=== PATIENT | female | born 1955 | race Caucasian/White ===

== ENCOUNTER 2016-09-19 14:00 | Outpatient (CLI) | payer BC ==
[~2016-09-19] VITALS: Ht 157.5 cm; Wt 59.1 kg
[2016-09-19 14:08] VITALS: BP 106/59; PULSE 78; RESP 18; Ht 157.5 cm; Wt 59.1 kg
[2016-09-19] MEDS ORDERED: ASPI-664 PO (14:23)
--- NOTE | 2016-09-20 17:11 | PN ---
Date/Time of Note Date/Time of Note DATE: 09/20/16 TIME: 17:03 Assessment/Plan Assessment/Plan Assessment/Plan [facility] Progress Note Date of Service: 09/19/16 Today's Impression & Plan: Overall stable post lap viviana for chronic cholecystitis with cholelithiasis and no evidence for malignancy at [facility] on 08/30/16, with MRCP 09/02/16 showing no evidence for CBD obstruction and LFT's normalizing (? reaction to anesthetics). Repeat labs 09/07/16 showed AST 95, ALT 152, alk phos 105 and T.bili 0.7. No indication for acute surgical intervention, but may need further monitoring of liver enzymes and consideration for hepatology consultation. 1. F/u with PCP 2. Consider hepatology consultation and monitoring of LFT's 3. F/u with us prn Thank you very much for allowing us to participate in the care of this very nice patient and wonderful family. If there are any questions, please feel free to contact me at . Total visit time: 20 minutes, of which more than half was spent in [id number] discussion with the patient, possibly including time to discuss issues with family, as well as coordination of care with multiple other physicians and providers. Please note: Spelling or grammatical errors in this note are likely due to EHR/ dictation systems and are not reflective of patient care quality. Also please note that the dictation timestamp of this note does not necessarily reflected time of the visit for this service. Updated Clinical Summary: A very pleasant 61-year-old lady with comorbidities including gastroesophageal reflux disease and hypercholesterolemia with known history of cholelithiasis, being admitted through the emergency department at [facility] on 08/29/2016 with biliary colic and possible early acute cholecystitis with slight elevation in total bilirubin, but with MRCP that showed no obvious choledocholithiasis. S/p lap viviana for acute cholecystitis on 08/31/16. Rise in LFT's post op. MRCP 09/02/16 showed no evidence for CBD obstruction and LFT's normalizing (? reaction to anesthetics). Scheduled ERCP cancelled. COMORBIDITIES: 1. Gastroesophageal reflux disease. 2. Hypercholesterolemia. 3. Known cholelithiasis. 4. S/p lap viviana for chronic cholecystitis with cholelithiasis and no evidence for malignancy at [facility] on 08/30/16, with MRCP 09/02/16 showing no evidence for CBD obstruction and LFT's normalizing (? reaction to anesthetics). Repeat labs showed AST 95, ALT 152, alk phos 105 and T.bili 0.7. Subjective: No major events or complaints since discharge home. Feels well. No major pain complaints and no longer on pain medications. No N/V, SOB or CP. + bowel activity Objective: Vitals: reviewed; please also see EHR Physical Exam: Lungs: breathing comfortably without tachypnea; no audible wheezes, rales or rhonchi on gross exam Abd: Soft, non-tender, and non-distended; no peritoneal signs or guarding; incisions c/d/i w/o obvious e/e/d/h. Skin: Appears pink and feels warm to touch. Neuro: Awake, alert and follows commands appropriately Exam/Review of Systems Vital Signs Vitals Vital Signs Date Time Temp Pulse Resp B/P Pulse Ox O2 Delivery O2 Flow Rate FiO2 09/19/16 14:08 98.2 78 18 106/59 98 Room Air GOSIA CHAUDHARY M.D. September 20, 2016 17:11
== END 2016-09-19 15:17 | disposition home or self-care (01) ==
LOC: HPC 14:00
PROVIDERS: ATTEND Transplant Surgery
DX: Z87.19 Personal history of other diseases of the digestive system (principal); K21.9 Gastro-esophageal reflux disease without esophagitis; E78.00 Pure hypercholesterolemia, unspecified
CPT/HCPCS: G0463